=== PATIENT | female | born 1975 | race Caucasian/White ===

== ENCOUNTER 2022-09-21 17:41 | Emergency (ER) | payer MEDICAID ==
[~2022-09-21] VITALS: Ht 154.9 cm; Wt 61.2 kg
[2022-09-21 17:50] VITALS: BP 137/100
--- NOTE | 2022-09-21 18:25 | NUR ---
Patient ambulated to bed 8.
--- NOTE | 2022-09-21 18:36 | NUR ---
ELIZABETH Fine evaluating patient at bedside.
[2022-09-21] MEDS ORDERED: KETOROLAC 30 MG/ML VIAL IM ONE ×2 (18:40→20:15)
--- NOTE | 2022-09-21 18:48 | NUR ---
Lab at bedside.
[2022-09-21 18:57] LABS: BASOPHILS # (AUTO) 0.1 K/uL (0.00-0.22); BASOPHILS % (AUTO) 0.8 % (0.0-2.0); EOSINOPHILS % (AUTO) 0.4 % (0.0-4.0); HEMOGLOBIN 14.2 g/dL (12.0-16.0); LYMPHOCYTES # (AUTO) 1.7 K/uL (2.5-16.5); LYMPHOCYTES % (AUTO) 24.8 % (20.5-51.1); MEAN CORPUSCULAR HEMOGLOBIN 31 pg (27-31); MEAN CORPUSCULAR HGB CONC 34 g/dL (33-37); MEAN CORPUSCULAR VOLUME 92.6 fL (80-94); MONOCYTES # (AUTO) 0.4 K/uL (0.8-1.0); MONOCYTES % (AUTO) 6.3 % (1.7-9.3); NEUTROPHILS # (AUTO) 4.6 K/uL (1.8-7.7); NEUTROPHILS % (AUTO) 67.7 % (42.2-75.2); PLATELET COUNT (AUTO) 265 K/uL (140-450); RED BLOOD CELL COUNT(AUTO) 4.54 MIL/uL (4.20-5.40); WHITE BLOOD COUNT (AUTO) 6.7 K/uL (4.8-10.8)
[2022-09-21 19:12] LABS: ALBUMIN 3.8 g/dL (3.4-5.0); ANION GAP 9.1 (8-16); CARBON DIOXIDE 28.5 mmol/L (21-32); CREATININE 0.8 mg/dL (0.6-1.3); POTASSIUM 4.6 mmol/L (3.5-5.1); TOTAL BILIRUBIN 0.3 mg/dL (0.0-1.0)
--- NOTE | 2022-09-21 19:21 | NUR ---
Pt report given to CHAR Valles. Transfer of care at this time.
[2022-09-21] MEDS ORDERED: ACETAMINOPHEN EXTRA STRENGTH 500 MG TAB PO ONE (19:45)
[2022-09-21] MEDS ORDERED: NAPR-1704 PO (20:06)
[2022-09-21] MEDS ORDERED: CAPS1ADH5 TP (20:06)
--- NOTE | 2022-09-21 20:26 | NUR ---
Patient discharged with v/s stable. Written and verbal after care instructions given and explained. Patient alert, oriented and verbalized understanding of instructions. Ambulatory with steady gait. All questions addressed prior to discharge. ID band removed. Patient advised to follow up with PMD. Rx of NAPROXEN AND CAPSAICIN/MENTHOL PATCH given. Opportunity to ask questions provided and answered.
--- NOTE | 2022-09-21 20:30 | NUR ---
The patient's care was reviewed and supervised by Graciela Villa RN, RN.
== END 2022-09-21 20:26 | disposition home or self-care (01) ==
LOC: MED 17:41
DX: S46.811A Strain of other muscles, fascia and tendons at shoulder and upper arm level, right arm, initial encounter (principal); I10 Essential (primary) hypertension; Z98.890 Other specified postprocedural states; X58.XXXA Exposure to other specified factors, initial encounter; Y93.89 Activity, other specified; Y92.89 Other specified places as the place of occurrence of the external cause; Y99.8 Other external cause status
CPT/HCPCS: 36415; 73030; 80053; 85025; 93005; 96372; 99285; J1885